=== PATIENT | female | born 1945 | race Caucasian/White ===

== ENCOUNTER 2023-05-17 13:00 | Outpatient (AMB) | payer MEDICARE, OTHER, SELFPAY ==
--- NOTE | 2023-05-17 13:25 | A.OFFVIS_ITS ---
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 She is a pleasant 78-year-old female was very active in the past per even up to 3 months ago she used to be able to go for walks for about 30 minutes without having to stop. However over the last 2-3 months she notices chest pressure walking about 10 minutes which limits her walking and has to stop. Symptoms have never happen at rest. However these are restricting her lifestyle. She says she denies any other symptoms of nausea, vomiting, shortness of breath. No orthopnea, PND, leg edema. No lightheadedness, syncope, prolonged palpitations. She has been taking all her medications regularly. She says she was diagnosed with hypertension only at age of 75. She has longstanding history of hyperlipidemia which as per her on current low intensity statin therapy is well managed. She was referred here and was advised to come here on urgent basis today to be seen. [facility] Medical History (Updated 05/17/23 @ 13:57 by Javon Leos MD) HTN (hypertension) Hyperlipidemia Review of Systems ENT Reports dizziness Card Denies chest pain, Denies chest pain at rest, Denies chest pain with activity, Denies rapid heart rate, Denies pedal edema, Denies edema, Denies leg edema, Denies lightheadedness, Denies palpitations, Denies dyspnea, Denies dyspnea on exertion and Denies orthopnea Resp Denies cough, Denies dyspnea and Denies dyspnea on exertion GI Denies hematochezia and Denies change in stool character Musc Denies abnormal gait, Reports limited range of motion, Reports muscle cramps, Denies muscle weakness, Denies numbness, Denies radiating pain into limb, Denies stiffness and Denies tingling Neuro Denies abnormal gait, Reports dizziness, Denies numbness and Denies tingling Endo Denies palpitations Physical Exam Vital Signs: Last Vital Signs BP 120/80 05/17/23 13:26 Const General: cooperative, comfortable, no acute distress, well developed, alert and awake Nutritional Appearance: average body habitus and well nourished Orientation/consciousness: patient oriented x3 Limitations: no limitations HEENT Head: Yes normocephalic and Yes atraumatic Neck Neck: Yes trachea midline, Yes supple and Yes no JVD Resp Effort & Inspection: normal respiratory effort Auscultation: clear to auscultation bilaterally Cardio Jugular venous distension: no JVD Palpation: normal PMI Rate: regular rate Rhythm: regular rhythm Heart sounds: S1 normal heart sound present, S2 normal heart sound present, no click, no gallops and Murmur heart sound present systolic early and decrescendo GI Auscultation: normal bowel sounds Skin General skin exam: no rashes or lesions noted Neuro General: patient oriented x3 and no focal motor deficits Extrem General: Yes no clubbing, cyanosis or edema Assessment & Plan Assessment & Plan (1) Exertional angina: Code(s): I20.8 - Other forms of angina pectoris Plan: Patient with classic symptoms of recent onset exertional angina with very limited lifestyle with good exercise capacity compared to in the past with the last 2-3 months. We discussed the mechanism of angina including supply demand mismatch. Most often related to obstructive coronary artery disease. There appears to be no on stable pattern at this point in time with no symptoms at rest. However advised her management of symptoms at rest. Have prescribed sublingual nitroglycerin to be used as need be and present to the emergency room if she ever develops resting discomfort. Meanwhile will start on isosorbide mononitrate 30 mg daily in addition to her amlodipine therapy as an antianginal therapy. Further treatment plan and management plan diagnostic workup discussed with her. She has high likelihood of obstructive coronary artery disease I thing pursuing cardiac catheterization with coronary angiogram to evaluate for coronary anatomy. She does have underlying chronic kidney disease which increase the risk of contrast induced nephropathy. This was discussed with her. We had also discussed possibility of having to undergo stage procedures if she has something that can be treated with percutaneous intervention. She understands and agrees. She wants to pursue with invasive approach to best treat her and guide her therapy. We discussed the risks, benefits, alternatives to the procedure. Will also obtain echocardiogram to assess for LV systolic and diastolic function to evaluate for regional wall motion anti have further risk stratify. Will switch her pravastatin, low intensity statin therapy to atorvastatin 80 mg daily. Target goal LDL closer to 60 mg/dL. Continue other medications as prescribed for now. Advised to call me with worsening symptoms. Follow up in the clinic in 4 weeks time, sooner p.r.n.. Thank you for allowing me to partake in the care Orders: Orders CA echo transthoracic complete Today I20.8 - Other forms of angina pectoris Basic Metabolic Panel Today I20.8 - Other forms of angina pectoris Prothrombin Time INR Today I20.8 - Other forms of angina pectoris Complete Blood Count no Diff Today I20.8 - Other forms of angina pectoris Cardiac Cath LT w PCI 1 Week I20.8 - Other forms of angina pectoris ECG 12 lead EKG Today I20.8 - Other forms of angina pectoris Medications: New atorvastatin 80 mg PO DAILY 30 tabs 5RF I20.8 - Other forms of angina pectoris isosorbide mononitrate ER 30 mg PO DAILY 30 tabs 5RF I20.8 - Other forms of angina pectoris nitroglycerin do not exceed 3 doses per episode 0.4 mg sublingual Q5M PRN 30 tabs 2RF chest pain I20.8 - Other forms of angina pectoris Coding Level of Care Code New Pt Level 4 (88561) Diagnoses Exertional angina I20.8
[2023-05-17 13:26] VITALS: BP 120/80
== END 2023-05-17 14:00 | disposition home or self-care (01) ==
PROVIDERS: PCP Physician Assistant; Visit Provider Internal Medicine Cardiovascular Disease
DX: I20.8 Other forms of angina pectoris (principal)
CPT/HCPCS: 99204

== ENCOUNTER → 2023-05-17 13:00 | Outpatient (BNVA) | payer MEDICARE, OTHER, SELFPAY | PROVIDERS: PCP Physician Assistant; Visit Provider Internal Medicine Cardiovascular Disease | DX: I20.8 Other forms of angina pectoris (principal); I10 Essential (primary) hypertension; E78.5 Hyperlipidemia, unspecified | CPT/HCPCS: 99202 ==

== ENCOUNTER 2023-05-21 06:23 | Outpatient (REF) | payer MEDICARE, OTHER, SELFPAY ==
--- NOTE | 2023-05-21 06:41 | ECG_ITS ---
Test Reason : preop Blood Pressure : / mmHG Vent. Rate : 072 BPM Atrial Rate : 072 BPM P-R Int : 142 ms QRS Dur : 090 ms QT Int : 394 ms P-R-T Axes : 068 029 101 degrees QTc Int : 431 ms Normal sinus rhythm Nonspecific ST abnormality Possible Lateral infarct , age undetermined Abnormal ECG No previous ECGs available Referred By: Javon Leos Electronically Signed By:BRIANDA ALLERD
[2023-05-21 08:20] LABS: Hemoglobin 12.1 g/dl (12.0-16.0); Mean Corpuscular HGB Conc 33.6 g/dl (31.0-35.0); Mean Corpuscular Volume 86.3 fL (80.0-98.0); Platelet Count 327 X10*3/uL (160-400); Red Blood Count 4.17 X10*6/uL (4.20-5.50); White Blood Count 5.4 X10*3/uL (4.8-10.8)
[2023-05-21 08:26] LABS: INTERNATIONAL NORM RATIO 0.9 (0.9-1.1); Prothrombin Time 10.5 SEC (11.1-13.3)
[2023-05-21 08:59] LABS: Anion Gap 12 (12-20); Blood Urea Nitrogen 20 mg/dL (9-16); Calcium 10.5 mg/dL (8.4-10.2); Carbon Dioxide 26 mmol/L (22-29); Chloride 101 mmol/L (96-108); Estimated Glomerular Filt Rate 39; Glucose Random 96 mg/dL (60-115); Potassium 4.4 mmol/L (3.3-5.1); Sodium 135 mmol/L (135-145)
== END 2023-05-21 06:24 | disposition home or self-care (01) ==
LOC: HO.LAB 06:23
PROVIDERS: PCP Physician Assistant; Visit Provider Internal Medicine Cardiovascular Disease
DX: I20.8 Other forms of angina pectoris (principal)
CPT/HCPCS: 36415; 80048; 85027; 85610; 93005

== ENCOUNTER → 2023-05-25 14:40 | Outpatient (REF) | payer MEDICARE, OTHER, SELFPAY ==
--- NOTE | 2023-05-25 14:42 | CA_ITS ---
Transthoracic Echocardiogram Patient (Last, First, Middle): Muriel Murry, Gender: Female Date of : 1945 Age: 78 Procedure Date: 05/25/2023 Procedure Type: Transthoracic Echocardiogram Location: OP Height: 149.86 cm Weight: 61.69 kg BSA: 1.57 m2 Heart Rate: bpm BP: 120 / 80 mmHg Hose Builder: WANDER Referring MD: Javon Leos MD Symptoms: I20.8 - Other forms of angina pectoris Study Quality: Fair ECG Rhythm: Sinus Conclusions: - The left ventricular systolic function is normal. The calculated ejection fraction is 69% by biplane method. - There is moderate septal asymmetric hypertrophy. - Aortic valve sclerosis but no significant stenosis. - There is mild tricuspid valve regurgitation. Findings Left Ventricle Normal left ventricular cavity size. The left ventricular systolic function is normal. The calculated ejection fraction is 69% by biplane method. There is no evidence of regional wall motion abnormalities. Diastolic function is normal for age. There is moderate septal asymmetric hypertrophy. LV peak GLS -18%. Right Ventricle Normal right ventricular cavity size and systolic function. Atria Both atria are normal in size. Aortic Valve The aortic valve was not well visualized. There is mild calcification of the aortic valve. There is no aortic valve regurgitation. No significant aortic stenosis. Mitral Valve There is mild mitral annular calcification. There is mild mitral valve regurgitation. There is no mitral valve stenosis. Pulmonic Valve The pulmonic valve is likely normal. Tricuspid Valve Normal tricuspid valve structure. There is mild tricuspid valve regurgitation. There is no evidence of pulmonary hypertension. Great Vessels The asc aorta is normal in size. Small plaque is seen in the sino tubular ridge. Venous The inferior vena cava is normal in size and collapses greater than 50% with inspiration. Pericardium/Pleural There is no evidence of pericardial effusion. Prior Study Comparison No prior study available for comparison. Measurements 2D Linear Measurements IVSd: 1.01 0.6-0.9/0.6-1.0 cm LVIDd: 3.76 3.9-5.3/4.2-5.9 cm LVIDd Index: 2.39 2.4-3.2/2.2-3.1 cm/m2 LVIDs: 2.86 2.0-3.6 cm LVPWd: 0.93 0.7-1.1 cm LA Diam: 3.40 2.7-3.8/3.0-4.0 cm LAIDs Index: 2.17 1.5-2.3 cm/m2 LV Mass: 137.52 67-162/88-224 g LV Mass Index: 87.59 43-95/49-115 g/m2 LVOT Diam: 1.90 3.0+(-)1.3 cm 2D Systolic Function EF 4C: 69.80 >55% EF 2C: 67.40 >55% EF BiP: 69.30 >55% Mitral Valve MV Pk E: 0.81 MV PK A: 0.80 MV Decel Time: 257.00 E/A: 1.00 E'Lateral: 6.31 E'Medial: 6.09 E/E' Med: 13.40 E/E' Lat: 12.90 PHT: 75.00 MVA PHT: 2.93 Decel [place]: 3.16 Aortic Valve AoV Pk Tai: 1.93 AoV Mn Tai: 1.43 AoV VTI: 0.44 AoV Pk Grad: 15.00 Aov Mn Grad: 9.00 DINO Cont.VTI: 1.88 LVOT LVOT Pk Tai: 1.37 LVOT Mn Tai: 1.01 LVOT VTI: 0.29 LVOT Pk Grad: 8.00 LVOT Mn Grad: 4.00 LVOT Diam: 1.90 LVOT Area: 2.84 Diastolic Function MV Pk E: 0.81 MV Pk A: 0.80 E/A: 1.00 E'Medial: 6.09 E/E' Med: 13.40 E' Laterial: 6.31 E/E' Lat: 12.90 Right Ventricle TAPSE (mm): 22.30 TVS' Tai: 10.10 Tricuspid Valve TR Pk Tai: 2.31 TR Pk Grad: 21.00 RA Press: 3.00 RVSP: 24.00 Great Vessels Aorta Sinus of Valsalva: 2.66 2.0-3.5 cm Ao Asc: 3.20 2.1-3.4 cm Updated in Other Vendor System with Status of Final Mani Gallegos MD electronically signed on 05/27/2023 12:11:43 PM with status of Final
== END ==
LOC: HO.CARD 14:40
PROVIDERS: PCP Physician Assistant; Visit Provider Internal Medicine Cardiovascular Disease
DX: I20.8 Other forms of angina pectoris (principal)
CPT/HCPCS: 93306; 93356

== ENCOUNTER → 2023-05-25 14:42 | Outpatient (BNV) | payer MEDICARE, OTHER, SELFPAY | PROVIDERS: PCP Physician Assistant; Visit Provider Internal Medicine | DX: I36.1 Nonrheumatic tricuspid (valve) insufficiency (principal); I34.0 Nonrheumatic mitral (valve) insufficiency | CPT/HCPCS: 93306 ==

== ENCOUNTER → 2023-05-26 23:59 | Outpatient (BNV) | payer MEDICARE, OTHER, SELFPAY | PROVIDERS: PCP Physician Assistant; Visit Provider Internal Medicine Cardiovascular Disease | DX: I20.8 Other forms of angina pectoris (principal) | CPT/HCPCS: 93458; 99152 ==

== ENCOUNTER → 2023-07-02 13:52 | Outpatient (REF) | payer MEDICARE, OTHER, SELFPAY | LOC: HO.CARD 13:52 | PROVIDERS: Visit Provider Internal Medicine Cardiovascular Disease | DX: I20.89 Other forms of angina pectoris (principal); Z95.1 Presence of aortocoronary bypass graft | CPT/HCPCS: 93306 ==

== ENCOUNTER → 2023-07-02 13:54 | Outpatient (BNV) | payer MEDICARE, OTHER, SELFPAY | PROVIDERS: Visit Provider Internal Medicine | DX: I36.1 Nonrheumatic tricuspid (valve) insufficiency (principal); I34.0 Nonrheumatic mitral (valve) insufficiency | CPT/HCPCS: 93306 ==

== ENCOUNTER 2023-07-20 14:56 | Outpatient (AMB) | payer MEDICARE, OTHER, SELFPAY ==
--- NOTE | 2023-07-20 15:13 | MHC.OFFVIS ---
Intake Vital Signs 07/20/23 15:14 Height 4 ft 11 in Weight 132 lb BMI 26.7 BP 120/72 Blood Pressure Location Lt brachial Position Sitting Pulse 78 Pulse Source Pulse Oximeter Intake Visit Reasons: follow up echo Intake Note: f/u after echo First [place] Required: No Allergies Thiazides Allergy (Mild, Verified 07/20/23 15:17) Rash Medication List - Last Reconciled 07/20/23 by Theodora Reardon, SENIOR PRODUCT CONSULTANT-C amlodipine 10 mg PO DAILY aspirin (Adult Aspirin Regimen) 81 mg PO DAILY atorvastatin 80 mg PO DAILY clopidogrel 75 mg PO DAILY levothyroxine 75 mcg PO DAILY metoprolol tartrate 25 mg PO BID nitroglycerin 0.4 mg sublingual Q5M PRN HPI follow up echo HPI Details Muriel is a 78-year-old female with past medical history of hypertension, hyperlipidemia who recently reported exertional angina. She underwent a cardiac catheterization showing significant coronary artery disease. She then underwent a 2 vessel coronary artery bypass grafting and now presents for follow-up. Today she reports she is doing quite well since her surgery last month. She says that she has no chest wall discomfort. She no longer has exertional angina. No shortness of breath, palpitations, PND, orthopnea, edema, no presyncope, syncope. She is doing light activities around the home and is in cardiac rehab. She is driving again. She has been discharged from cardiac surgery. Overall she is very pleased with her progress. She completed her course of amiodarone. She is taking all her other medications as directed. [facility], [facility] Medical History (Updated 07/20/23 @ 18:59 by Theodora Reardon, SENIOR PRODUCT CONSULTANT-C) Hyperlipidemia HTN (hypertension) Surgical History (Updated 07/20/23 @ 18:54 by Theodora Reardon, SENIOR PRODUCT CONSULTANT-C) S/P CABG x 2 Review of Systems Const All systems reviewed & are unremarkable except as noted in HPI and below ENT Denies dizziness Card Denies chest pain, Denies chest pain at rest, Denies chest pain with activity, Denies rapid heart rate, Denies pedal edema, Denies edema, Denies leg edema, Denies lightheadedness, Denies palpitations, Denies dyspnea, Denies dyspnea on exertion and Denies orthopnea Resp Denies cough, Denies dyspnea and Denies dyspnea on exertion GI Denies hematochezia and Denies change in stool character Musc Denies abnormal gait, Denies limited range of motion, Denies muscle cramps, Denies muscle weakness, Denies numbness, Denies radiating pain into limb, Denies stiffness and Denies tingling Neuro Denies abnormal gait, Denies dizziness, Denies numbness and Denies tingling Endo Denies palpitations Physical Exam Vital Signs: Last Vital Signs Pulse 78 07/20/23 15:14 BP 120/72 07/20/23 15:14 BMI result Body Mass Index 26.7 Const General: cooperative, healthy appearing, comfortable and no acute distress Orientation/consciousness: patient oriented x3 Neck Neck: Yes normal visual inspection Chest Other: Sternal incision fully intact Resp Effort & Inspection: normal respiratory effort Auscultation: clear to auscultation bilaterally, no rales, no rhonchi and no wheezes Cardio Jugular venous distension: no JVD Rate: regular rate Rhythm: regular rhythm Heart sounds: S1 normal heart sound present, S2 normal heart sound present, no murmurs and no rubs Neuro General: patient oriented x3 Extrem General: Yes normal to inspection Psych Appearance: grossly normal Mental Status: mental status grossly normal Speech and movement: Normal speech and movement present Assessment & Plan Assessment & Plan (1) Coronary artery disease: Code(s): I25.10 - Atherosclerotic heart disease of [place] coronary artery without angina pectoris Qualifiers: Coronary Disease-Associated Artery/Lesion type: [place] artery [place] vs. transplanted heart: [place] heart Associated angina: with unspecified form of angina Qualified Code(s): I25.119 - Atherosclerotic heart disease of [place] coronary artery with unspecified angina pectoris Plan: Report of typical sounding exertional angina. Cardiac risk factors of hypertension and hyperlipidemia. She was started on appropriate med management then underwent cardiac catheterization on 05/26/2023 showing significant obstructive coronary artery disease. She was admitted and underwent 2 vessel Coronary artery bypass grafting on 06/01/2023 with JC to LAD, SVG to OM2. She did well postoperatively. She completed her 30 day course of amiodarone. She continues on aspirin and Plavix without any bleeding issues. She has full resolution of her exertional angina. She is now in cardiac rehab and doing well. Echocardiogram done 07/02/2023 showed EF 59%, mild MR, [id number] TR, no reported regional wall motion abnormalities, small loculated pericardial effusion over the right ventricle. Blood pressure currently normal range. Will continue current med management including aspirin, Plavix which she will be on for 1 year, metoprolol and amlodipine. Cardiology follow-up in 3 months, sooner if needed. (2) S/P CABG x 2: Code(s): Z95.1 - Presence of aortocoronary bypass graft Plan: 06/01/2023, jc to LAD, SVG to OM to (3) Exertional angina: Code(s): I20.8 - Other forms of angina pectoris Plan: Resolved (4) HTN (hypertension): Code(s): I10 - Essential (primary) hypertension Qualifiers: Hypertension type: primary hypertension Qualified Code(s): I10 - Essential (primary) hypertension Plan: Well controlled at present (5) Hyperlipidemia: Code(s): E78.5 - Hyperlipidemia, unspecified Qualifiers: Hyperlipidemia type: unspecified Qualified Code(s): E78.5 - Hyperlipidemia, unspecified Plan: [place] LDL goal less than 70 in patient with CAD. Continue high-dose statin. Plan for fasting lipid profile at next visit. (6) S/P cardiac catheterization: Comment: 05/26/2023, proximal LAD 95% stenosis, 2nd OM ostial 75% stenosis, proximal RCA 80% stenosis, non dominant vessel, small territory Code(s): Z98.890 - Other specified postprocedural states Plan: Right radial catheterization site well healed. (7) Hospital discharge follow-up: Code(s): Z09 - Encounter for follow-up examination after completed treatment for conditions other than malignant neoplasm Medications: New clopidogrel 75 mg PO DAILY 90 tabs 3RF metoprolol tartrate 25 mg PO BID 90 days 180 tabs 3RF Coding Level of Care Code Est Pt Level 4 (09455) Diagnoses Coronary artery disease involving [place] coronary artery of [place] heart with angina pectoris I25.119 Coronary Disease-Associated Artery/Lesion type: [place] artery [place] vs. transplanted heart: [place] heart Associated angina: with unspecified form of angina S/P CABG x 2 Z95.1 Exertional angina I20.8 Primary hypertension I10 Hypertension type: primary hypertension Hyperlipidemia, unspecified hyperlipidemia type E78.5 Hyperlipidemia type: unspecified S/P cardiac catheterization Z98.890 Hospital discharge follow-up Z09 Time Spent (min) 30
[2023-07-20 15:14] VITALS: BP 120/72; PULSE 78; BMI 26.7
== END 2023-07-20 15:49 | disposition home or self-care (01) ==
PROVIDERS: PCP Physician Assistant; Visit Provider Nurse Practitioner Family
DX: I25.119 Atherosclerotic heart disease of native coronary artery with unspecified angina pectoris (principal); Z95.1 Presence of aortocoronary bypass graft; I10 Essential (primary) hypertension; E78.5 Hyperlipidemia, unspecified; Z98.890 Other specified postprocedural states; Z09 Encounter for follow-up examination after completed treatment for conditions other than malignant neoplasm
CPT/HCPCS: 99214

== ENCOUNTER → 2023-07-20 14:56 | Outpatient (BNVA) | payer MEDICARE, OTHER, SELFPAY | PROVIDERS: PCP Physician Assistant; Visit Provider Nurse Practitioner Family | DX: I25.118 Atherosclerotic heart disease of native coronary artery with other forms of angina pectoris (principal); Z09 Encounter for follow-up examination after completed treatment for conditions other than malignant neoplasm; I10 Essential (primary) hypertension; E78.5 Hyperlipidemia, unspecified; Z98.890 Other specified postprocedural states; Z95.1 Presence of aortocoronary bypass graft | CPT/HCPCS: 99212 ==

== ENCOUNTER 2023-10-21 13:36 | Outpatient (AMB) | payer MEDICARE, OTHER, SELFPAY ==
[2023-10-21 13:41] VITALS: BP 120/78; PULSE 78; BMI 27.2
--- NOTE | 2023-10-21 13:41 | A.OFFVIS_ITS ---
Intake Vital Signs 10/21/23 13:41 Height 4 ft 11 in Weight 134 lb 7.712 oz BMI 27.2 BP 120/78 Blood Pressure Location Lt brachial Position Sitting Pulse 78 Intake Visit Reasons: 3 mth f/up Intake Note: 3 month follow-up feeling good Transcriber Required: No Allergies Thiazides Allergy (Mild, Verified 07/20/23 15:17) Rash Medication List - Last Reconciled 10/21/23 by Javon eLos MD amlodipine 10 mg PO DAILY aspirin (Adult Aspirin Regimen) 81 mg PO DAILY atorvastatin 80 mg PO DAILY clopidogrel 75 mg PO DAILY levothyroxine 75 mcg PO DAILY metoprolol tartrate 25 mg PO BID 90 days nitroglycerin 0.4 mg sublingual Q5M PRN HPI HPI Comments History of Present Illness Details Muriel comes for follow-up after 3 months. She has been doing well. She is back to her exercise level and is not having any symptoms of exertional angina. She has stopped doing phase 2 cardiac rehabilitation. Her sternum is healed well. She is taking all her medications. She does not have any bleeding issues or neurologic events. No heart failure symptoms. No prolonged palpitations irregular heartbeat. [facility] Medical History (Updated 10/21/23 @ 14:05 by Javon Leos MD) Exertional angina Hyperlipidemia HTN (hypertension) Surgical History (Updated 10/21/23 @ 14:05 by Javon Leos MD) S/P cardiac catheterization S/P CABG x 2 Review of Systems Const Denies chills, Denies fatigue, Denies fever(s), Denies frequent falls, Denies weakness, Denies weight gain and Denies weight loss ENT Denies dizziness Card Denies chest pain, Denies leg edema, Denies lightheadedness, Denies palpitations, Denies dyspnea, Denies dyspnea on exertion, Denies orthopnea and Denies other (loss of consciousness) Resp Denies cough, Denies dyspnea and Denies dyspnea on exertion GI Denies hematochezia and Denies change in stool character Musc Denies abnormal gait, Denies muscle weakness, Denies numbness, Denies radiating pain into limb and Denies tingling Neuro Denies abnormal gait, Denies dizziness, Denies frequent falls, Denies numbness, Denies tingling and Denies weakness Endo Denies fatigue and Denies palpitations Physical Exam Vital Signs: Last Vital Signs Pulse 78 10/21/23 13:41 BP 120/78 10/21/23 13:41 BMI result Body Mass Index 27.2 Const General: cooperative, healthy appearing, comfortable and no acute distress Orientation/consciousness: patient oriented x3 Neck Neck: Yes normal visual inspection Chest Other: Sternal incision fully intact Chest palpation & inspection: other (Well-healed sternotomy scar) Resp Effort & Inspection: normal respiratory effort Auscultation: clear to auscultation bilaterally, no rales, no rhonchi and no wheezes Cardio Jugular venous distension: no JVD Rate: regular rate Rhythm: regular rhythm Heart sounds: S1 normal heart sound present, S2 normal heart sound present, no murmurs and no rubs Neuro General: patient oriented x3 Extrem General: Yes normal to inspection Psych Appearance: grossly normal Mental Status: mental status grossly normal Speech and movement: Normal speech and movement present Assessment & Plan Assessment & Plan (1) Coronary artery disease: Code(s): I25.10 - Atherosclerotic heart disease of [place] coronary artery without angina pectoris Qualifiers: Coronary Disease-Associated Artery/Lesion type: [place] artery [place] vs. transplanted heart: [place] heart Associated angina: with unspecified form of angina Qualified Code(s): I25.119 - Atherosclerotic heart disease of [place] coronary artery with unspecified angina pectoris Plan: CAD status post urgent 2 vessel coronary artery bypass grafting. She is done very well with resolved symptoms of angina. Continue aggressive medical therapy. Continue dual antiplatelet therapy for 6 more months and lifelong aspirin therapy beyond that. She is on high-intensity statin therapy and advised lipid panel in near future. Target goal LDL closer to 60 mg/dL. Continue aggressive blood pressure control. Encouraged to continue to participate in physical activity as tolerated. Advised to call me with any new symptoms. (2) HTN (hypertension): Code(s): I10 - Essential (primary) hypertension Qualifiers: Hypertension type: primary hypertension Qualified Code(s): I10 - Essential (primary) hypertension Plan: Hypertension which is currently well optimized advised to monitor blood pressure at home maintain a log. Goal blood pressure less than 130/84. Low-salt diet was discussed advised to maintain heart healthy lifestyle. Follow up in the clinic in 6 months time, sooner p.r.n.. Thank you for allowing me to partake in the care Coding Level of Care Code Est Pt Level 4 (39510) Diagnoses Coronary artery disease involving [place] coronary artery of [place] heart with angina pectoris I25.119 Coronary Disease-Associated Artery/Lesion type: [place] artery [place] vs. transplanted heart: [place] heart Associated angina: with unspecified form of angina Primary hypertension I10 Hypertension type: primary hypertension
== END 2023-10-21 14:18 | disposition home or self-care (01) ==
PROVIDERS: PCP Physician Assistant; Visit Provider Internal Medicine Cardiovascular Disease
DX: I25.119 Atherosclerotic heart disease of native coronary artery with unspecified angina pectoris (principal); I10 Essential (primary) hypertension
CPT/HCPCS: 99214

== ENCOUNTER → 2023-10-21 13:36 | Outpatient (BNVA) | payer MEDICARE, OTHER, SELFPAY | PROVIDERS: PCP Physician Assistant; Visit Provider Internal Medicine Cardiovascular Disease | DX: I25.119 Atherosclerotic heart disease of native coronary artery with unspecified angina pectoris (principal); I10 Essential (primary) hypertension | CPT/HCPCS: 99212 ==

== ENCOUNTER 2023-10-23 09:33 | Outpatient (REF) | payer MEDICARE, OTHER, SELFPAY ==
[2023-10-23 11:29] LABS: Cholesterol 170 mg/dL (<200); HDL Cholesterol 92 mg/dL (>40); LDL Cholesterol Calculated 62 mg/dL (<100); Triglycerides 83 mg/dL (<150)
== END 2023-10-23 09:34 | disposition home or self-care (01) ==
LOC: HO.LAB 09:33
PROVIDERS: Visit Provider Internal Medicine Cardiovascular Disease
DX: E78.5 Hyperlipidemia, unspecified (principal); Z95.1 Presence of aortocoronary bypass graft
CPT/HCPCS: 36415; 80061

== ENCOUNTER 2024-04-20 10:13 | Outpatient (AMB) | payer MEDICARE, OTHER, SELFPAY ==
[2024-04-20 10:30] VITALS: BP 120/76; PULSE 65; BMI 28.0
--- NOTE | 2024-04-20 10:30 | A.OFFVIS_ITS ---
Vital Signs 04/20/24 10:30 Height 4 ft 11 in Weight 138 lb 14.259 oz BMI 28.0 BP 120/76 Blood Pressure Location Lt brachial Position Sitting Pulse 65 Intake Visit Reasons: 6 month f/u Intake Note: 6 month follow-up with ekg feeling good Exercise Physiologist Required: No Allergies Thiazides Allergy (Mild, Verified 07/20/23 15:17) Rash Medication List - Last Reconciled 04/20/24 by Javon Leos MD amlodipine 10 mg PO DAILY aspirin (Adult Aspirin Regimen) 81 mg PO DAILY atorvastatin 80 mg PO DAILY clopidogrel 75 mg PO DAILY levothyroxine 75 mcg PO DAILY metoprolol tartrate 25 mg PO BID 90 days nitroglycerin 0.4 mg sublingual Q5M PRN HPI Comments Details: Muriel comes for follow-up. Patient denies any new symptoms. She has been doing very well. She has been remaining active. Denies any exertional chest pain or shortness of breath. Taking all her medications. Last LDL was 62 mg/dL. Denies any heart failure symptoms. Denies any lightheadedness, syncope. Denies any prolonged palpitation irregular heartbeat. [facility] Medical History Exertional angina Hyperlipidemia HTN (hypertension) Surgical History S/P cardiac catheterization S/P CABG x 2 Review of Systems Const Denies chills, Denies fatigue, Denies fever(s), Denies frequent falls, Denies we akness, Denies weight gain and Denies weight loss ENT Denies dizziness Card Denies chest pain, Denies leg edema, Denies lightheadedness, Denies palpit ations, Denies dyspnea, Denies dyspnea on exertion, Denies orthopnea and Denies other (loss of consciousness) Resp Denies cough, Denies dyspnea and Denies dyspnea on exertion GI Denies hematochezia and Denies change in stool character Musc Denies abnormal gait, Denies muscle weakness, Denies numbness, Denies radiating pain into limb and Denies tingling Neuro Denies abnormal gait, Denies dizziness, Denies frequent falls, Denies numbness, Denies tingling and Denies weakness Endo Denies fatigue and Denies palpitations Physical Exam Vital Signs: Last Vital Signs Pulse 65 07/25/24 10:30 BP 120/76 04/20/24 10:30 BMI result Body Mass Index 28.0 Const General: cooperative, healthy appearing, comfortable and no acute distress Orientation/consciousness: patient oriented x3 Neck Neck: Yes normal visual inspection Chest Other: Sternal incision fully intact Chest palpation & inspection: other (Well-healed sternotomy scar) Resp Effort & Inspection: normal respiratory effort Auscultation: clear to auscultation bilaterally, no rales, no rhonchi and no wheezes Cardio Jugular venous distension: no JVD Rate: regular rate Rhythm: regular rhythm Heart sounds: S1 normal heart sound present, S2 normal heart sound present, no murmurs and no rubs Neuro General: patient oriented x3 Extrem General: Yes normal to inspection Psych Appearance: grossly normal Mental Status: mental status grossly normal Speech and movement: Normal speech and movement present Office Procedures EKG Details: EKG shows normal sinus rhythm with LVH with repolarization abnormality with Q- waves in inferior lead [id number], Complete Assessment & Plan Assessment & Plan (1) Coronary artery disease: Code(s): I25.10 - Atherosclerotic heart disease of [place] coronary artery without angina pectoris Category: Medical Qualifiers: Coronary Disease-Associated Artery/Lesion type: [place] artery [place] vs. transplanted heart: [place] heart Associated angina: with unspecified form of angina Qualified Code(s): I25.119 - Atherosclerotic heart disease of [place] coronary artery with unspecified angina pectoris Plan: CAD with urgent 2 vessel coronary artery bypass grafting last year. Continue dual antiplatelet therapy till May and then lifelong aspirin therapy beyond that. Continue aggressive risk factor modification. LDL is well optimized on 80 mg of atorvastatin. Continue aggressive blood pressure control. Encouraged to continue maintain activity level as tolerated. Advised to call me with any new symptoms. (2) HTN (hypertension): Code(s): I10 - Essential (primary) hypertension Category: Medical Qualifiers: Hypertension type: primary hypertension Qualified Code(s): I10 - Essential (primary) hypertension Plan: Hypertension with mild hypertensive heart disease. Clinically without any signs or symptoms of heart failure. Continue aggressive blood pressure control. Currently well optimized. Advised to monitor blood pressure intermittently at home and target goal blood pressure less than 130/84 and maintain a log. Low- salt diet was discussed. Will follow up in the clinic in 1 year's time, sooner p.r.n.. Thank you for allowing me to partake in her care Orders: Orders Lipid Panel 1 Year I25.10 - Atherosclerotic heart disease of [place] coronary artery without angina pectoris, I25.119 - Atherosclerotic heart disease of [place] coronary artery with unspecified angina pectoris Coding Level of Care Code Est Pt Level 4 (44403) Diagnoses Coronary artery disease involving [place] coronary artery of [place] heart with angina pectoris I25.119 Coronary Disease-Associated Artery/Lesion type: [place] artery [place] vs. transplanted heart: [place] heart Associated angina: with unspecified form of angina Primary hypertension I10 Hypertension type: primary hypertension CPT Codes EKG - CPT: 70406-[id number], Complete ([id number])
== END 2024-04-20 10:57 | disposition home or self-care (01) ==
PROVIDERS: PCP Physician Assistant; Visit Provider Internal Medicine Cardiovascular Disease
DX: I25.119 Atherosclerotic heart disease of native coronary artery with unspecified angina pectoris (principal); I10 Essential (primary) hypertension
CPT/HCPCS: 93010; 99214

== ENCOUNTER → 2024-04-20 10:13 | Outpatient (BNVA) | payer MEDICARE, OTHER, SELFPAY | PROVIDERS: PCP Physician Assistant; Visit Provider Internal Medicine Cardiovascular Disease | DX: I25.118 Atherosclerotic heart disease of native coronary artery with other forms of angina pectoris (principal); I10 Essential (primary) hypertension; Z95.1 Presence of aortocoronary bypass graft; Z98.890 Other specified postprocedural states | CPT/HCPCS: 93005; 99212 ==

== ENCOUNTER 2025-05-23 07:52 | Outpatient (REF) | payer MEDICARE, OTHER, SELFPAY ==
--- OUTSIDE RECORDS SUMMARY | 2025-05-23 07:55 | XMS_ITS | Clinical Summary ---
Author Organization [facility] Address [address] [place] [address] Phone Care Team Providers Care Electronics Technology Instructor Name Role Phone Ruthy Isabel Primary Care Provider [phone] Allergies Active Allergy Reactions Criticality Noted Date Comments Thiazides 11/30/2022 Medications aspirin 81 MG EC tablet Take 81 mg by mouth daily. Active acetaminophen (TYLENOL) 650 MG CR tablet Take 650 mg by mouth every 6 (six) hours as needed for pain (specific location in comments). Active amLODIPine (NORVASC) 10 MG tablet Take 10 mg by mouth daily. Active atorvastatin (LIPITOR) 80 MG tablet Take 80 mg by mouth daily. Active clopidogrel (PLAVIX) 75 mg tablet Take 75 mg by mouth daily. Active levothyroxine (SYNTHROID, LEVOTHROID) 75 MCG tablet Take 75 mcg by mouth every morning. Active metoprolol tartrate (LOPRESSOR) 25 MG tablet Take 25 mg by mouth 2 (two) times a day. Active cholecalciferol (VITAMIN D3) 2,000 unit capsule Take 2,000 Units by mouth daily. Active acetaminophen (TYLENOL) 325 mg tablet Take 650 mg by mouth. 3 Active pravastatin (PRAVACHOL) 40 MG tablet Take 40 mg by mouth. Active nitroglycerin (NITROSTAT) 0.4 MG SL tablet DISSOLVE 1 TABLET UNDER TONGUE EVERY 5 MINUTES NEEDED FOR CHEST PAIN DO NOT EXCEED 3/EPISODE 3 Active metoprolol succinate (TOPROL-XL) 25 MG 24 hr tablet Take 25 mg by mouth. Active isosorbide mononitrate (IMDUR) 30 MG 24 hr tablet Take 1 tablet by mouth every morning. 3 Active cyanocobalamin, vitamin B-12, 50 mcg tablet Take 50 mcg by mouth. Active cloNIDine HCL (CATAPRES) 0.1 MG tablet TAKE 1 TABLET TWICE A DAY BY ORAL ROUTE FOR 90 DAYS. 3 Active amiodarone (PACERONE) 200 MG tablet TAKE 1 TABLET BY MOUTH TWO TIMES A DAY FOR 21 DAYS 3 Active vitamin E acetate (VITAMIN E ORAL) Take 400 Units by mouth. Active Active Problems Problem Noted Date Diagnosed Date Class 2 obesity 08/04/2023 08/04/2023 S/P CABG x 2 06/15/2023 08/04/2023 Acute renal failure syndrome 12/04/202204/2023 Hypo-osmolality and hyponatremia 11/30/2022 08/04/2023 Anemia in chronic kidney disease 11/26/2022 08/04/2023 Hyperlipidemia 11/26/2022 08/04/2023 Hypertensive disorder 11/26/2022 08/04/2023 Stage 3 chronic kidney disease 11/26/2022 1 10/04/2022 Immunizations Immunization Administration Dates Next Due Influenza High-Dose Quadrivalent Preservative Fr ee IM 07/06/2022 Social History Tobacco Use Types Packs/Day Years Used Date Smoking Tobacco: Former Cigarettes 1.5 23 0 09/27/1961 - 09/27/1984 Smokeless Tobacco: Never Tobacco Cessation:Counseling Given: Not Answered Alcohol Use Standard Drinks/Week Comments Yes 7 (1 standard drink = 0.6 oz pur e alcohol) Education Answer Date Recorded Are you interested in more education? Not on tatiana e 06/18/2023 Are you concerned about learning? Not on file 06/18/2023 No 06/18/2023 No 06/18/2023 Digital Access Answer Date Recorded No 06/18/2023 No 06/18/2023 Reliable internet access at home? Not on file 06/18/2023 Device with a working camera? Not on file Comments Unknown Sex and Gender Information Value Date Recorded Sex Assigned at Not on file Legal Sex Female 2:53 PM EDT Gender Identity Not on file Sexual Orientation Not on file Last Filed Vital Signs Vital Sign Reading Time Taken Comments Blood Pressure 177/95 08/04/2023 12:57 PM EST Pulse 78 08/04/2023 12:57 PM EST Temperature 36.9 C (98.5 F) 08/04/2023 12:57 PM EST Respiratory Rate 18 08/04/2023 12:57 PM EST Oxygen Saturation 100% 08/04/2023 12:57 PM EST Inhaled Oxygen Concentration - - Weight 59.9 kg (132 lb) 08/04/2023 12:57 PM EST per pt Height 149.9 cm (4' 11 ) 07/05/2023 3:56 PM EDT Body Mass Index 26.66 07/05/2023 3:56 PM EDT Plan of Treatment Health Maintenance Due Date Last Done Comments ALT LEVEL (ALANINE AMINOTRANSFERASE) 1945 Adult Td,Tdap Booster 1945 LIPID PANEL 1945 TSH LEVEL 1945 SMOKING Hx and SMOKELESS TOB ACCO SCREENING 1958 PNEUMOCOCCAL VACCINES (50+ y ears) (1 of 1 - PCV) 1995 ZOSTER VACCINES (1 of 2) 1995 OSTEOPOROSIS SCREENING INITI AL (ONE-TIME) 2010 RSV VACCINE (1 - 1-dose 75+ series) 02/02/2020 BLOOD PRESSURE 02/02/2024 08/04/2023 COVID-19 VACCINE (1 - 2023-2 5 season) 2024 DEPRESSION SCREENING 07/05/2024 07/05/2023 HEPATITIS A VACCINES Aged Out No long er eligible based on patient's age to complete this topic HIB VACCINES Aged Out No longer eligi ble based on patient's age to complete this topic MENINGOCOCCAL VACCINES (ACWY) Aged Out No longer eligible based on patient's age to complete this topic MENINGOCOCCAL VACCINES (B) Aged Out N o longer eligible based on patient's age to complete this topic Medical Devices Not on file [facility] SU[facility] MEDICARE PART A & B [facility] MEDICARE SUPPLEMENT MEDICARE PART A & B [facility] EXT[facility]ION MEDICARE SUPPLEMENT MEDICARE PART A & B [facility] MEDICARE SUPPLEMENT MEDICARE PART A & B [facility] EX[facility]ION MEDICARE SUPPLEMENT MEDICARE PART A & B [facility] MEDICARE SUPPLEMENT MEDICARE PART A & B Care Teams Electronics Technology Instructor Relationship Specialty Start Date End Date Ruthy Isabel PA [address] [place] [phone] PCP - General Physician Vessel Traffic Officer 06/18/23 Additional Source Comments The information contained in this document represents components of the legal health record. It is not the complete legal health record.[facility]
--- OUTSIDE RECORDS SUMMARY | 2025-05-23 07:55 | XMS_ITS | Clinical Summary ---
Author Organization [facility] Address [address] [address] Phone Care Team Providers Care Customer Relations Assistant Name Role Phone Ruthy Isabel Primary Care Provider [phone] Allergies Active Allergy Reactions Criticality Noted Date Comments Thiazide-Type Diuretics 11/30/2022 Medications amLODIPine (NORVASC) 10 MG tablet Take 10 mg by mouth 1 (one) time each day Active aspirin (ST JESSICA) 81 MG EC tablet Take 81 mg by mouth 1 (one) time each day Active levothyroxine sodium (TIROSINT) 75 MCG capsule Take 75 mcg by mouth 1 (one) time each day Active cyanocobalamin (VITAMIN B-12) 50 MCG tablet Take 50 mcg by mouth 1 (one) time each day Active Vitamin D, Cholecalciferol, 50 MCG (2000 UT) capsule Take by mouth Active atorvastatin (LIPITOR) 80 MG tablet Take 80 mg by mouth 1 (one) time each day Active metoprolol succinate XL (TOPROL XL) 25 MG 24 hr tablet Take 1 tablet (25 mg total) by mouth 2 (two) times a day Do not crush or chew. 07/17/2024 Active Active Problems Problem Noted Date Diagnosed Date Hypertensive chronic kidney disease stage 3 10/29 Acute nontraumatic kidney injury 12/04/2022 Hypo-osmolality and hyponatremia 11/30/2022 Stage 3 chronic kidney disease 11/26/2022 Hyperlipidemia 11/26/2022 Anemia in chronic kidney disease 11/26/2022 Hypertensive disorder 11/26/2022 Encounters Date Type Department Care Team Description 04/02/2025 Orders Only [facility] [address] [phone] Gopi Rose MD Stage 3b chronic kidney disease (HCC); Pure hypercholesterolemia, not otherwise specified; Hypertensive chronic kidney disease stage 3 from Last 3 Months Social History Tobacco Use Types Packs/Day Years Used Date Smoking Tobacco: Former Cigarettes Smokeless Tobacco: Never Tobacco Cessation:Counseling Given: No Alcohol Use Standard Drinks/Week Comments Yes 0 (1 standard drink = 0.6 oz pur e alcohol) Comments Unknown Sex and Gender Information Value Date Recorded Sex Assigned at Not on file Legal Sex Female 11:58 AM EST Gender Identity Not on file Sexual Orientation Not on file Last Filed Vital Signs Vital Sign Reading Time Taken Comments Blood Pressure 122/64 07/17/2024 1:46 PM EDT Pulse 78 07/17/2024 1:46 PM EDT Temperature - - Respiratory Rate - - Oxygen Saturation - - Inhaled Oxygen Concentration - - Weight 65.5 kg (144 lb 6.4 oz) 07/17/2024 1:46 P M EDT Height - - Body Mass Index - - Plan of Treatment Upcoming Encounters Date Type Department Care Team (Late st Contact Info) Description 07/09/2025 2:15 PM EDT Office Visit [facility] [address] [phone] Gopi Rose MD [address] [phone] Health Maintenance Due Date Last Done Comments Pneumococcal Vaccine: 50+ Ye ars (2 of 2 - PPSV23, PCV20, or PCV21) 09/24/2015 07/30/2015 Influenza Vaccine (#1) 2025 Hepatitis B Vaccine Aged Out No longe r eligible based on patient's age to complete this topic Insurance Medicare [facility] Care Teams Customer Relations Assistant Relationship Specialty Start Date End Date Ruthy Isabel PA [address] [place] [id number] PCP - General 08/18/22
[2025-05-23 09:28] LABS: Cholesterol 162 mg/dL (<200); HDL Cholesterol 77 mg/dL (>40); Triglycerides 73 mg/dL (<150)
== END 2025-05-23 07:53 | disposition home or self-care (01) ==
LOC: HO.LAB 07:52
PROVIDERS: PCP Physician Assistant; Visit Provider Internal Medicine Cardiovascular Disease
DX: I25.119 Atherosclerotic heart disease of native coronary artery with unspecified angina pectoris (principal)
CPT/HCPCS: 36415; 80061

== ENCOUNTER 2025-06-04 12:44 | Outpatient (AMB) | payer MEDICARE, OTHER, SELFPAY ==
--- NOTE | 2025-06-04 12:46 | A.OFFVIS_ITS ---
Vital Signs 06/04/25 12:47 Height 4 ft 11 in Weight 138 lb 14.259 oz BMI 28.0 BP 132/76 Blood Pressure Location Lt brachial Position Sitting Pulse 68 Intake Visit Reasons: 1 yr follow up Intake Note: 1 year follow-up with ekg c/o some sob not walking as much Barbering Instructor Required: No Allergies Thiazides Allergy (Mild, Verified 07/20/23 15:17) Rash Medication List - Last Reconciled 06/04/25 by Javon Leos MD amlodipine 5 mg PO DAILY aspirin (Adult Aspirin Regimen) 81 mg PO DAILY atorvastatin 80 mg PO DAILY 90 days levothyroxine 75 mcg PO DAILY metoprolol tartrate 25 mg PO BID 90 days nitroglycerin 0.4 mg sublingual Q5M PRN HPI Comments Details: Muriel comes for follow-up. She has been doing well. She has gained some weight. She has not been exercising much, says overall because of laziness. She has no exertional chest pain or shortness of breath. Taking all her medications. Most recent lipid panel showed LDL of 71 mg/dL. She has not had any heart failure symptoms. No orthopnea PND, leg edema. Denies any symptoms of claudications. No exertional chest pain. No lightheadedness, syncope. [facility] Medical History Exertional angina Hyperlipidemia HTN (hypertension) Surgical History S/P cardiac catheterization S/P CABG x 2 Review of Systems Const Denies chills, Denies fatigue, Denies fever(s), Denies frequent falls, Denies weakness, Denies weight gain and Denies weight loss ENT Denies dizziness Card Denies chest pain, Denies leg edema, Denies lightheadedness, Denies palpitations, Denies dyspnea, Denies dyspnea on exertion, Denies orthopnea and Denies other (loss of consciousness) Resp Denies cough, Denies dyspnea and Denies dyspnea on exertion GI Denies hematochezia and Denies change in stool character Musc Denies abnormal gait, Denies muscle weakness, Denies numbness, Denies radiating pain into limb and Denies tingling Neuro Denies abnormal gait, Denies dizziness, Denies frequent falls, Denies numbness, Denies tingling and Denies weakness Endo Denies fatigue and Denies palpitations Physical Exam Vital Signs: Last Vital Signs Pulse 68 06/04/25 12:47 BP 132/76 06/04/25 12:47 BMI result Body Mass Index 28.0 Const General: cooperative, healthy appearing, comfortable and no acute distress Orientation/consciousness: patient oriented x3 Neck Neck: Yes normal visual inspection Chest Other: Sternal incision fully intact Chest palpation & inspection: other (Well-healed sternotomy scar) Resp Effort & Inspection: normal respiratory effort Auscultation: clear to auscultation bilaterally, no rales, no rhonchi and no wheezes Cardio Jugular venous distension: no JVD Rate: regular rate Rhythm: regular rhythm Heart sounds: S1 normal heart sound present, S2 normal heart sound present, no murmurs and no rubs Neuro General: patient oriented x3 Extrem General: Yes normal to inspection Psych Appearance: grossly normal Mental Status: mental status grossly normal Speech and movement: Normal speech and movement present Office Procedures EKG Details: EKGs shows normal sinus rhythm with inferior Q-waves otherwise no acute ST T wave changes [id number], Complete Assessment & Plan Assessment & Plan (1) Coronary artery disease: Code(s): I25.10 - Atherosclerotic heart disease of [place] coronary artery without angina pectoris Category: Medical Qualifiers: Coronary Disease-Associated Artery/Lesion type: [place] artery [place] vs. transplanted heart: [place] heart Associated angina: with unspecified form of angina Qualified Code(s): I25.119 - Atherosclerotic heart disease of [place] coronary artery with unspecified angina pectoris Plan: CAD with coronary artery bypass grafting 2022. No recurrent symptoms since then. Doing well from cardiac perspective. Patient remains active and has been encouraged to even increase her activity level. She understands and agrees. Continue lifelong aspirin therapy. Continue high-intensity statin therapy with target goal LDL less than 70 mg/dL. Blood pressure is currently well optimized. Advised to monitor blood pressure at home maintain a log. Goal blood pressure less than 130/84. Low-salt diet was discussed. Advised to call me with any new symptoms. Will follow up in the clinic in 1 year's time, sooner p.r.n.. Thank you for allowing me to partake in her care Coding Level of Care Code Est Pt Level 4 (22938) Complex EM visit Add On G2211 Diagnoses Coronary artery disease involving [place] coronary artery of [place] heart with angina pectoris I25.119 Coronary Disease-Associated Artery/Lesion type: [place] artery [place] vs. transplanted heart: [place] heart Associated angina: with unspecified form of angina CPT Codes EKG - CPT: 17899-[id number], Complete ([id number])
[2025-06-04 12:47] VITALS: BP 132/76; PULSE 68; BMI 28.0
--- OUTSIDE RECORDS SUMMARY | 2025-06-04 14:53 | XMS_ITS | Clinical Summary ---
Author Organization [facility] Address [address] [place] [phone] Phone Care Team Providers Care Technical Assoc Name Role Phone Ruthy Isabel Primary Care Provider [phone] Allergies Active Allergy Reactions Criticality Noted Date [...] 75+ series) 02/02/2020 BLOOD PRESSURE 02/02/2024 08/04/2023 DEPRESSION SCREENING 07/05/2024 07/05/2023 INFLUENZA VACCINE (#1) 2025 07/06/2022 COVID-19 VACCINE (1 - 2023-2 5 season) 2025 HEPATITIS A VACCINES Aged Out No long [...] topic Medical Devices Not on file Insurance [facility] [employer] MEDICARE SUPPLEMENT MEDICARE PART A & B [facility] [employer] MEDICARE SUPPLEMENT MEDICARE PART A & B [facility] MEDICARE SUPPLEMENT MEDICARE PART A & B [facility] MEDICARE SUPPLEMENT MEDICARE PART A & B [facility] MEDICARE SUPPLEMENT MEDICARE PART A & B [facility] MEDICARE SUPPLEMENT MEDICARE PART A & B Care Teams Technical Assoc Relationship Specialty Start Date End Date Ruthy Isabel PA [address] [place] [phone] PCP - General Physician Rehabilitation Program Manager 06/18/23 Additional Source Comments The information contained in this document represents components of the legal health record. It is not the complete legal health record.[facility]
--- OUTSIDE RECORDS SUMMARY | 2025-06-04 14:54 | XMS_ITS | Clinical Summary ---
Author Organization [facility] Address [address] [phone] Phone Care Team Providers Care Actuarial Manager Name Role Phone Ruthy Isabel Primary Care Provider [phone] Allergies Active Allergy Reactions Criticality Noted Date [...] Orders Only [facility] [address] [phone] Gopi Rose MD Stage 3b [...] Office [facility] [address] [phone] Gopi Rose MD [address] [phone] Health Maintenance Due Date Last Done Comments Pneumococcal Vaccine: 50+ Ye ars (2 of 2 - PPSV23, PCV20, or PCV21) 09/24/2015 07/30/2015 Influenza Vaccine (#1) 2025 Hepatitis B Vaccine Aged Out No longe r eligible based on patient's age to complete this topic Insurance Medicare [facility] Care Teams Actuarial Manager Relationship Specialty Start Date End Date Ruthy Isabel PA [address] [place] [id number] PCP - General 08/18/22
== END 2025-06-04 13:12 | disposition home or self-care (01) ==
LOC: HO.HCS 12:44
PROVIDERS: PCP Physician Assistant; Visit Provider Internal Medicine Cardiovascular Disease
DX: I25.119 Atherosclerotic heart disease of native coronary artery with unspecified angina pectoris (principal)
CPT/HCPCS: 93010; 99214; G2211

== ENCOUNTER → 2025-06-04 12:44 | Outpatient (BNVA) | payer MEDICARE, OTHER, SELFPAY | PROVIDERS: PCP Physician Assistant; Visit Provider Internal Medicine Cardiovascular Disease | DX: I25.119 Atherosclerotic heart disease of native coronary artery with unspecified angina pectoris (principal) | CPT/HCPCS: 93005; 99212 ==